=== PATIENT | female | born 1985 | race Caucasian/White ===

== ENCOUNTER 2020-08-29 15:31 | Outpatient (CLI) | payer BC | END 2020-08-29 15:32 | disposition home or self-care (01) | LOC: CSHMAMMO 15:31 | PROVIDERS: ATTEND Obstetrics & Gynecology | DX: Z12.31 Encounter for screening mammogram for malignant neoplasm of breast (principal) | CPT/HCPCS: 77063; 77067 ==

== ENCOUNTER 2022-08-25 05:52 | Day surgery (SDC) | payer BC ==
[2022-08-21 12:52] VITALS: BMI 25.0
[2022-08-25] MEDS ORDERED: Acetaminophen 500 MG TAB ONE (06:29)
[2022-08-25] MEDS ORDERED: Lidocaine 1% PF 5 ML VIAL ONE (06:31)
[2022-08-25] MEDS ORDERED: Rocuronium Bromide 10 MG/ML (10ML VIAL) ONE (06:31)
[2022-08-25] MEDS ORDERED: PROPOFOL 20 ML ONE (06:32)
[2022-08-25] MEDS ORDERED: Bupivacaine HCl 0.5%/Epinephrine 1:200,000/PF 30 ml Vial ONE (06:47)
[2022-08-25] MEDS ORDERED: Midazolam HCl 2 mg/2 ml Vial ONE (06:52)
[2022-08-25] MEDS ORDERED: Scopolamine 1.5 mg/72 hour Patch ONE (06:52)
[2022-08-25] MEDS ORDERED: Famotidine/PF 20 mg/2ml Vial ONE (06:54)
[2022-08-25] MEDS ORDERED: CEFAZOLIN 2 GM VIAL ONE (06:57)
[2022-08-25] MEDS ORDERED: SUGAMMADEX SODIUM 200 MG/2 ML VIAL ONE (06:58)
[2022-08-25] MEDS ORDERED: Fentanyl 100 MCG/2 ML VIAL ONE ×3 (07:04→09:35)
[2022-08-25] MEDS ORDERED: Ketorolac Tromethamine 30 MG/ML VIAL ONE (07:44)
[2022-08-25] MEDS ORDERED: Dexamethasone 4 mg/ml Vial ONE (07:44)
[2022-08-25] MEDS ORDERED: Ondansetron PF 4 MG/2 ML Vial ONE ×2 (07:44→13:31)
[2022-08-25] MEDS ORDERED: PHENYLEPHRINE-NS 100 MCG/ML 10 ML SYRINGE ONE (08:01)
[2022-08-25] MEDS ORDERED: Glycopyrrolate 0.2 MG/ML 5 ML SYRINGE ONE (08:38)
[2022-08-25] MEDS ORDERED: traMADol HCl 50 MG TAB ONE (11:13)
[2022-08-25 12:37] LABS: Hemoglobin 11.9 g/dL (12.0-15.5); Platelet Count 295 10x3/uL (150-450)
== END 2022-08-25 14:45 | disposition home or self-care (01) ==
LOC: CSHSDC 05:52
PROVIDERS: ATTEND Obstetrics & Gynecology
DX: N80.03 Adenomyosis of the uterus (principal); D25.9 Leiomyoma of uterus, unspecified; N73.6 Female pelvic peritoneal adhesions (postinfective); N80.9 Endometriosis, unspecified; N84.0 Polyp of corpus uteri; N94.5 Secondary dysmenorrhea; Z88.5 Allergy status to narcotic agent; G43.909 Migraine, unspecified, not intractable, without status migrainosus
CPT/HCPCS: 36415; 85014; 85018; 85049; 88307; C1776; J1100; J1885; J2250; J2405; J2704; J3010; Q9968; S0028